=== PATIENT | male | born 1975 | race African-American/Black ===

== ENCOUNTER 2020-04-14 08:57 | Emergency (ER) | payer SELFPAY ==
[2020-04-14 09:05] VITALS: BP 139/87
--- NOTE | 2020-04-14 10:01 | RADIOLOGY REPORT (SQ) ---
EXAM DESCRIPTION: ANKLE LEFT COMPLETE IMAGES COMPLETED DATE/TIME: 04/14/2020 9:51 am REASON FOR STUDY: fall injury, swelling COMPARISON: None. NUMBER OF VIEWS: Three views. TECHNIQUE: AP, lateral, and oblique radiographic images acquired of the left ankle. LIMITATIONS: None. FINDINGS: MINERALIZATION: Normal. BONES: Nondisplaced transverse fracture of the base of the 5th metatarsal. JOINTS: No effusions. SOFT TISSUES: Soft tissue fullness is seen in the injury site, likely on the basis of hematoma or sandy ma. OTHER: No other significant finding. IMPRESSION: Nondisplaced transverse fracture of the base of the 5th metatarsal. TECHNICAL DOCUMENTATION: JOB ID: [id number] 2010 [employer]- All Rights Reserved Reading location - IP/workstation name: [email or web address]
--- NOTE | 2020-04-14 10:54 | ER Document Report ---
HPI - HPI Time Seen by Provider: 04/14/20 10:46 Pain Level: 5 Context: Patient is a 45-year-old male who presents emergency department with a chief complaint of left foot pain. Patient reports last night he jumped off of a brick wall that was about 3 to 5 feet. Patient reports that his left foot externally rotated. Patient reports he is having left lateral foot pain. This is worse with movement. Patient reports swelling. Patient reports this is extremely painful to walk. Denies any other injury. - REPRODUCTIVE Reproductive: DENIES: : - MUSCULOSKELETAL Musculoskeletal: REPORTS: Extremity pain - DERM Skin Color: Normal Past Medical History - General Information source: Patient - Social History Smoking Status: Unknown if Ever Smoked Frequency of alcohol use: Social Drug Abuse: None Family History: Reviewed & Not Pertinent - Past Medical History Cardiac Medical History: Reports: None Pulmonary Medical History: Reports: Hx Asthma EENT Medical History: Reports: None Neurological Medical History: Reports: None Endocrine Medical History: Reports: None Renal/ Medical History: Reports: None Malignancy Medical History: Reports None GI Medical History: Reports: None Musculoskeletal Medical History: Reports None Skin Medical History: Reports None Psychiatric Medical History: Reports: Hx Bipolar Disorder - Immunizations Hx Diphtheria, Pertussis, Tetanus Vaccination: No Vertical Provider Document - CONSTITUTIONAL Agree With Documented VS: Yes Exam Limitations: No Limitations General Appearance: No Apparent Distress - INFECTION CONTROL TRAVEL OUTSIDE OF THE [place] IN LAST 30 DAYS: No - HEENT HEENT: Atraumatic, Normal ENT Exam, Normocephalic, PERRLA - RESPIRATORY Respiratory: Breath Sounds Normal, No Respiratory Distress - CARDIOVASCULAR Cardiovascular: Regular Rate, Regular Rhythm - GI/ABDOMEN Gastrointestinal: Abdomen Soft, Abdomen Non-Tender, Normal Bowel Sounds - MUSCULOSKELETAL/EXTREMETIES Notes: Patient has a diffuse swelling to the left lateral foot. There is tenderness over the left fifth metatarsal. There is no ecchymosis. Patient is able to flex and extend the foot with and without resistance. Patient has a +2 dorsalis pedis and posterior tibial pulse. Less than 2-second cap refill in all digits of the left foot. - NEURO Level of Consciousness: Awake, Alert, Appropriate - DERM Integumentary: Warm, Dry, No Rash Course - Re-evaluation Re-evalutation: 04/14/20 11:52 Patient has a nondisplaced transverse fracture of the left fifth metatarsal. Patient will place in a hard soled boot as well as crutches. Patient was instructed to follow-up with orthopedics, referrals were given to the patient and his discharge instructions. I did educate the patient on the importance of having follow-up to ensure that the fracture is healing well and to determine if any other plan of action is needed for his fracture. Patient verbalized understanding. Patient denies questions. - Vital Signs Vital signs: Temp Pulse Resp BP Pulse Ox 97.9 F 84 16 139/87 H 100 04/14/20 09:04 04/14/20 09:04 04/14/20 09:04 04/14/20 09:04 04/14/20 09:04 - Laboratory Results Laboratory Results Interpreted: 04/14/20 11:52 Ankle X-Ray 04/14/20 00:00 IMPRESSION: Nondisplaced transverse fracture of the base of the 5th metatarsal. Critical Laboratory Results Reviewed: No Critical Results - Radiology Results Critical Radiology Results Reviewed: No Critical Results Discharge - Discharge Clinical Impression: Nondisplaced fracture of fifth left metatarsal bone Qualifiers: Encounter type: initial encounter Fracture type: closed Qualified Code(s): S92.355A - Nondisplaced fracture of fifth metatarsal bone, left foot, initial encounter for closed fracture Condition: Stable Disposition: HOME, SELF-CARE Additional Instructions: *Today are seen the emergency department after a foot injury. Your x-ray did not reveal that you have a nondisplaced transverse fracture of the left metatarsal. This is right at the location of your discomfort and swelling. We have placed you in a walking boot. Please use this until you follow-up with orthopedics., Use your crutches. Continue to ice, elevate and take anti- inflammatories such as Aleve, ibuprofen. Do not mix anti-inflammatories as this can upset your stomach. Foot Fracture You have a fracture in one of the small bones of the foot. Some foot fractures are very serious, while others are no more serious than a sprain. This fracture should heal well, but requires protection for proper healing. Initially, you should elevate and ice pack the foot, and bear no weight on it. Usually, a cast or a walking boot will be required. Some milder foot fractures can be managed with temporary rest, then a firm shoe. Your physician has determined the seriousness of your foot fracture and has outlined the treatment plan for you. You should follow up as instructed to insure that the fracture heals without complications. Call the doctor or return at once if pain or swelling becomes severe, if a re-injury occurs, or if any part of the foot becomes numb. Referrals: VERN MALIK DO [ACTIVE STAFF] - Follow up as needed ARGELIA HOLLINS MD [NO LOCAL MD] - Follow up as needed DORCAS CONDON JR, DO [ACTIVE PROVISIONAL STAFF] - Follow up as needed
== END 2020-04-14 11:06 | disposition home or self-care (01) ==
LOC: ER 08:57
DX: S92.355A Nondisplaced fracture of fifth metatarsal bone, left foot, initial encounter for closed fracture (principal); X50.0XXA Overexertion from strenuous movement or load, initial encounter; X50.9XXA Other and unspecified overexertion or strenuous movements or postures, initial encounter; Y93.39 Activity, other involving climbing, rappelling and jumping off; J45.909 Unspecified asthma, uncomplicated
CPT/HCPCS: 99283